=== PATIENT | male | born 1985 | race Asian ===

== ENCOUNTER 2018-01-12 19:52 | Emergency (ER) | payer OTHER ==
[~2018-01-12] VITALS: Ht 180.3 cm; Wt 72.6 kg
[~2018-01-12 19:52] MED LIST: ALBU90OI INH; CODGUAEL PO; IBUP600 PO; Zofran4 MG PO
== END 2018-01-12 21:02 | disposition home or self-care (01) ==
LOC: ER 19:52
DX: S80.01XA Contusion of right knee, initial encounter (principal); Z23 Encounter for immunization; F17.200 Nicotine dependence, unspecified, uncomplicated; Z91.012 Allergy to eggs; V86.59XA Driver of other special all-terrain or other off-road motor vehicle injured in nontraffic accident, initial encounter
CPT/HCPCS: 73564; 90471; 90714; 99283-25